=== PATIENT | male | born 1985 | race Caucasian/White ===

== ENCOUNTER 2020-06-24 04:26 | Emergency (ER) | payer OTHER ==
[2020-06-24 04:38] VITALS: BP 134/94; PULSE 83; RESP 18; TEMP 98.4
--- NOTE | 2020-06-24 05:11 | XR ---
EXAMINATION TYPE: XR shoulder complete LT DATE OF EXAM: 06/24/2020 COMPARISON: NONE HISTORY: Shoulder pain. Dislocation. TECHNIQUE: 3 views FINDINGS: The glenohumeral joint is anatomic. I see no fracture nor dislocation. There are no patholo gic calcifications. IMPRESSION: Negative exam. No fracture seen.
--- NOTE | 2020-06-24 05:24 | ED ---
Upper Extremity HPI - General Chief Complaint: Extremity Injury, Upper Stated Complaint: Left shoulder Time Seen by Provider: 06/24/20 04:54 Source: patient Mode of arrival: ambulatory Limitations: no limitations - History of Present Illness Initial Comments: This patient is a 35-year-old man who presents for evaluation of his left shoulder. Patient states that approximately 2 weeks ago he had jumped [place] the river and it felt like his shoulder popped. He thought that it had probably come out of joint. Patient states that after. At time of relaxing and then going to range of motion was able to go back into joint. He states that tonight he rolled in bed and felt a pop and thought that it had come out but now by arrival here he feels that the joint is back in. Patient denies numbness or weakness down the arm. No neck symptoms. MD Complaint: Injury to:: left, shoulder -: week(s) Other Extremity Injury: Shoulder: Left Other Injuries: none Handedness: right Place: outdoors Improves With: immobilization Worsens With: movement of extremity Associated Symptoms: heard/felt popping sensat - Related Data Previous Rx's Medication Instructions Recorded Albuterol Inhaler (Mhu) [Ventolin 2 puff INHALATION Q4HR PRN #1 09/12/14 Hfa Inhaler (Mhu)] inhaler Azithromycin [Zithromax Z-pack] 250 mg PO DIRECTED #6 tab 09/12/14 methylPREDNISolone Dose Pack 24 mg PO DAILY #1 tab 09/12/14 [Medrol Dose Pack] Ibuprofen 800 mg PO TID #20 tablet 06/24/20 Allergies Allergy/AdvReac Type Severity Reaction Status Date / Time No Known Allergies Allergy Verified 06/24/20 04:37 Review of Systems ROS Statement: Those systems with pertinent positive or pertinent negative responses have been documented in the HPI. ROS Other: All systems not noted in ROS Statement are negative. Constitutional: Denies: fever, chills, weakness Respiratory: Denies: cough, dyspnea Cardiovascular: Denies: chest pain Gastrointestinal: Denies: abdominal pain Musculoskeletal: Reports: as per HPI, arthralgia. Denies: back pain Skin: Denies: rash Neurological: Denies: headache, weakness, numbness, paresthesias Past Medical History Past Medical History: No Reported History History of Any Multi-Drug Resistant Organisms: None Reported Past Surgical History: No Surgical Hx Reported Past Psychological History: Bipolar, Schizophrenia Smoking Status: Current every day smoker, Vaper Past Alcohol Use History: Heavy Past Drug Use History: Marijuana General Exam Limitations: no limitations General appearance: alert, in no apparent distress Head exam: Present: atraumatic, normocephalic Eye exam: Present: normal appearance. Absent: scleral icterus, conjunctival injection Neck exam: Present: normal inspection, full ROM. Absent: tenderness Respiratory exam: Present: normal lung sounds bilaterally. Absent: respiratory distress, wheezes, rales, rhonchi, stridor Cardiovascular Exam: Present: regular rate, normal rhythm, normal heart sounds. Absent: systolic murmur, diastolic murmur, rubs, gallop GI/Abdominal exam: Present: soft. Absent: distended, tenderness, guarding, rebound, rigid Extremities exam: Present: normal inspection, full ROM, normal capillary refill. Absent: tenderness, pedal edema, calf tenderness Back exam: Present: normal inspection. Absent: CVA tenderness (R), CVA tenderness (L) Neurological exam: Present: alert. Absent: motor sensory deficit Skin exam: Present: warm, dry, intact, normal color. Absent: rash Course Vital Signs 06/24/20 04:30 Temperature 98.4 F Pulse Rate 83 Respiratory 18 Rate Blood Pressure 134/94 O2 Sat by Pulse 96 Oximetry Medical Decision Making - Medical Decision Making Patient's 35-year-old man with complaint of left shoulder injury and concerned about dislocation. From the x-ray and the clinical exam the patient does appear to be in good anatomic alignment. He is advised to not work with arm above shoulder level while the muscles tighten. He is directed to follow with orthopedics for further physical rehabilitation. Disposition Clinical Impression: Shoulder sprain Disposition: HOME SELF-CARE Condition: Good Instructions (If sedation given, give patient instructions): Shoulder Sprain (ED) Prescriptions: Ibuprofen 800 mg PO TID #20 tablet Is patient prescribed a controlled substance at d/c from ED?: No Referrals: None,Stated [Primary Care Provider] - 1-2 days Kamran Willson MD [STAFF PHYSICIAN] - 1-2 days
== END 2020-06-24 05:43 | disposition home or self-care (01) ==
LOC: EC 04:26
DX: S43.402A Unspecified sprain of left shoulder joint, initial encounter (principal); F17.200 Nicotine dependence, unspecified, uncomplicated; X50.9XXA Other and unspecified overexertion or strenuous movements or postures, initial encounter
CPT/HCPCS: 99283

== ENCOUNTER 2020-12-30 13:18 | Emergency (ER) | payer OTHER ==
[2020-12-30 13:31] VITALS: TEMP 98.2
[2020-12-30] MEDS ORDERED: HYDROmorphone 1 MG/ML 1 ML SYRINGE IVP STA (13:45)
[2020-12-30] MEDS ORDERED: LORazepam 2 MG/ML INJ IV STA (13:46)
--- NOTE | 2020-12-30 13:51 | ED ---
Upper Extremity HPI <Lexus Espitia - Last Filed: 12/30/20 15:12> - General Source: patient Mode of arrival: wheelchair Limitations: no limitations <Fidelina Brand - Last Filed: 12/30/20 16:26> - General Chief Complaint: Extremity Injury, Upper Stated Complaint: Shoulder injury-Fall Time Seen by Provider: 12/30/20 13:33 - History of Present Illness Initial Comments: 35-year-old male presenting for symptom fall with left shoulder pain. Patient states he slipped and fell striking his left shoulder patient states that he believes he dislocated as he has dislocated it in the past he states he is usually able to put it back in himself was unable to today and thus presents to the ER. He denies any injury to his head neck back abdomen chest. He denies loss of consciousness or anticoagulation use. He denies any pain the elbows wrists or hands bilaterally. Patient denies any lacerations or abrasion. He denies any scapular pain remaining of his systems negative upon arrival patient appears well and nontoxic distress. Tolerating pain well. (Fidelina Brand) - Related Data Previous Rx's Medication Instructions Recorded Albuterol Inhaler (Mhu) [Ventolin 2 puff INHALATION Q4HR PRN #1 09/12/14 Hfa Inhaler (Mhu)] inhaler Azithromycin [Zithromax Z-pack (6 250 mg PO DIRECTED #6 tab 09/12/14 tabs)] methylPREDNISolone Dose Pack 24 mg PO DAILY #1 tab 09/12/14 [Medrol Dose Pack] Ibuprofen 800 mg PO TID #20 tablet 06/24/20 Allergies Allergy/AdvReac Type Severity Reaction Status Date / Time No Known Allergies Allergy Verified 06/24/20 04:37 Review of Systems ROS Other: All systems not noted in ROS Statement are negative. <Lexus Espitia - Last Filed: 12/30/20 15:12> ROS Other: All systems not noted in ROS Statement are negative. <Fidelina Brand - Last Filed: 12/30/20 16:26> ROS Statement: Those systems with pertinent positive or pertinent negative responses have been documented in the HPI. Past Medical History Past Medical History: No Reported History History of Any Multi-Drug Resistant Organisms: None Reported Past Surgical History: No Surgical Hx Reported Past Psychological History: Bipolar, Schizophrenia Smoking Status: Current every day smoker, Vaper Past Alcohol Use History: Heavy Past Drug Use History: Marijuana <iFdelina Brand - Last Filed: 12/30/20 16:26> General Exam Limitations: no limitations <Fidelina Brand - Last Filed: 12/30/20 16:26> - General Exam Comments Initial Comments: General: The patient is awake and alert, in no distress Eye: +3 mm pupils are equal, round and reactive to light, extra-ocular movements are intact. No nystagmus. There is normal conjunctiva bilaterally. No signs of icterus. Ears, nose, mouth and throat: There are moist mucous membranes and no oral lesions. Neck: The neck is supple, there is no tenderness or JVD. Cardiovascular: There is a regular rate and rhythm. No murmur, rub or gallop is appreciated. Respiratory: Lungs are clear to auscultation, respirations are non-labored, breath sounds are equal. No wheezes, stridor, rales, or rhonchi. Musculoskeletal: Cannot full range at the left shoulder, no obvious gross deformity given body habitus. Strength 5/5 at elbows/wrists b/l. Sensation intact of the UE b/l. Radial and DP pulses equal bilaterally 2+. able to make the fingers crossed okay thumbs-up and oppose the small digit and thumb no evidence of wristdrop. Neurological: A&O x 3. CN II-XII intact, There are no obvious motor or sensory deficits. Coordination appears grossly intact. Speech is normal. Skin: Skin is warm and dry and no rashes or lesions are noted. Psychiatric: Cooperative, appropriate mood & affect, normal judgment. (Fidelina Brand Samantha) Course Vital Signs 12/30/20 12/30/20 12/30/20 13:28 14:03 14:45 Temperature 98.2 F Pulse Rate 98 82 89 Respiratory 18 20 16 Rate Blood Pressure 126/82 141/93 129/88 O2 Sat by Pulse 97 98 100 Oximetry 12/30/20 12/30/20 12/30/20 14:50 14:55 15:10 Temperature Pulse Rate 88 95 85 Respiratory 18 14 16 Rate Blood Pressure 115/94 115/79 115/86 O2 Sat by Pulse 98 98 99 Oximetry 12/30/20 12/30/20 12/30/20 15:25 15:40 15:55 Temperature Pulse Rate 80 78 81 Respiratory 16 16 16 Rate Blood Pressure 127/81 124/88 136/96 O2 Sat by Pulse 99 99 99 Oximetry Procedures - Procedural Sedation Procedural Sedation Start Time: 14:47 Procedural Sedation Stop Time: 15:10 Indications: fracture/dislocation reduction ASA Class: I Mallampati Airway Score: 4 Time of Last PO Intake: 11:30 Preparation: quality assurance monitor body applied, pulse oximeter, capnometry used, supplemental O2 applied, suction/airway equipment at bedside, IV secured IV Propofol Dose (mgs): 200 Complications: none Patient Tolerated Procedure: well, no complications <Lexus Espitia - Last Filed: 12/30/20 15:12> - Orthopedic Joint Reduction Joint #1 Consent Obtained: verbal consent Side: left Joint Reduction Location: shoulder Analgesia: procedural sedation Shoulder Technique Used (if applicable): traction/counter-traction, Milch Technique Used: traction/counter-traction Post-Reduction Neuro Exam: intact Post-Reduction Vascular Exam: intact Post Reduction X-Ray Obtained: Yes Post Reduction X-Ray Results: reduced Splint Applied: Yes (sling) Patient Tolerated Procedure: well <Fidelina Brand - Last Filed: 12/30/20 16:26> Medical Decision Making <Fidelina Brand - Last Filed: 12/30/20 16:26> - Medical Decision Making XR anterior dislocation no obvious fracture. Patient sedated, shoulder reduced. and placed in sling patient is neurovascularly intact both prior to and after reduction. Postreduction films within normal limits no obvious Hill-Sachs deformity but cannot be ruled out. Patient pain improved. Patient be discharged with orthopedic follow-up he was monitored after sedation (Fidelina Brand) Disposition <Lexus Espitia - Last Filed: 12/30/20 15:12> Is patient prescribed a controlled substance at d/c from ED?: No Time of Disposition: 16:00 <Fidelina Brand - Last Filed: 12/30/20 16:26> Clinical Impression: Dislocation of left shoulder joint, Fall Disposition: HOME SELF-CARE Condition: Good Instructions (If sedation given, give patient instructions): Shoulder Dislocation (ED), Moderate Sedation (ED) Additional Instructions: Please use medication as discussed. Please follow-up with family doctor in the next 2 days, [facility]. Please return to emergency room if the symptoms increase or worsen or for any other concerns. Referrals: Chidi Mcguire MD [Primary Care Provider] - 1-2 days Kamran Willson MD [STAFF PHYSICIAN] - 1-2 days
--- NOTE | 2020-12-30 14:01 | XR ---
EXAMINATION TYPE: XR shoulder complete LT DATE OF EXAM: 12/30/2020 Comparison: 06/24/2020 Clinical History: 35-year-old male dislocation Findings: There is an anterior subglenoid glenohumeral joint dislocation. AC joint is intact. No acute fracture seen. Impression: Anterior glenohumeral joint dislocation. No acute fracture identified.
[2020-12-30] MEDS ORDERED: PROPOFOL 10 MG/ML 20 ML VIAL IV ONE (14:28)
[2020-12-30] MEDS ORDERED: PROPOFOL 10 MG/ML 20 ML VIAL IV STA (14:53)
--- NOTE | 2020-12-30 15:10 | XR ---
EXAMINATION TYPE: XR shoulder limited LT DATE OF EXAM: 12/30/2020 COMPARISON: Earlier today HISTORY: 35-year-old male postreduction exam TECHNIQUE: Single AP view FINDINGS: Interval satisfactory reduction of the glenoid humeral joint. Unable to exclude a Hill-Sachs deformit y given some irregularity along the superolateral humeral head. IMPRESSION: Satisfactory reduction of the glenohumeral joint. Unable to exclude a shallow Hill-Sachs deformity.
[2020-12-30 15:22] VITALS: RESP 16
[2020-12-30] MEDS ORDERED: ACET/COD 300 MG/30 MG STARTER PACK 6 TAB BTL PO STA (15:59)
[2020-12-30 16:13] VITALS: BP 136/96; PULSE 81
== END 2020-12-30 16:15 | disposition home or self-care (01) ==
LOC: EC 13:18
DX: S43.005A Unspecified dislocation of left shoulder joint, initial encounter (principal); F17.290 Nicotine dependence, other tobacco product, uncomplicated; W01.10XA Fall on same level from slipping, tripping and stumbling with subsequent striking against unspecified object, initial encounter; Y93.89 Activity, other specified
CPT/HCPCS: 73030; 73020; 99283; 23650; 99152; 99153; J2060; J1170; J2704